=== PATIENT | male | born 1970 | race Caucasian/White ===

== ENCOUNTER 2016-08-22 16:23 | Emergency (ER) | payer BC ==
[~2016-08-22] VITALS: Ht 165.1 cm; Wt 87.5 kg
[2016-08-22 17:07] LABS: HEMATOCRIT 50.8 % (38.0-50.0); MCH 29.6 PG (29.0-34.0); MCHC 35.2 G/DL (30.0-36.0); MEAN PLAT.VOLUME 9.4 uM^3 (9.0-12.4); PLATELET COUNT 182 K/uL (156-360); RBC DIS.WIDTH-CV 11.8 % (11.8-14.6); RBC DIS.WIDTH-SD 35.7 % (39-53); RED BLOOD COUNT 6.05 M/uL (4.00-5.50); WHITE BLOOD COUNT 8.2 K/uL (4.1-10.2)
[2016-08-22 17:17] LABS: CHLORIDE 109 mEq/L (99-109); SODIUM 141 mEq/L (136-147)
[2016-08-22 17:19] LABS: GLUCOSE 99 mg/dL (70-99)
[2016-08-22 17:21] LABS: ANION GAP 8 MEQ/L (2-14)
[2016-08-22 17:24] LABS: UREA NITROGEN (BUN) 13 mg/dL (9-23)
[2016-08-22 17:25] LABS: GFR ESTIMATE (CALCULATED) > 59 mL/min/
[2016-08-22 17:27] LABS: TROP-I INTERPRETATION NEGATIVE; TROPONIN-I < 0.01 ng/mL (0.0-0.30)
[2016-08-22 18:41] VITALS: BP 148/89
[2016-08-22] MEDS ORDERED: MEDROL DOSEPAK4 MG PO (18:44)
[2016-08-22] MEDS ORDERED: FLEXERIL10 MG PO (18:44)
[2016-08-22] MEDS ORDERED: NAPROSYN500 MG PO (18:44)
== END 2016-08-22 19:09 | disposition home or self-care (01) ==
LOC: EME 16:23
DX: M54.12 Radiculopathy, cervical region (principal); R07.9 Chest pain, unspecified; F17.200 Nicotine dependence, unspecified, uncomplicated
CPT/HCPCS: 71020; 71275; 80048; 84484; 85027; 93005; 99281; 99284; J1100; J1885